=== PATIENT | male | born 1990 | race African-American/Black ===

== ENCOUNTER 2017-03-30 02:53 | Emergency (ER) | payer SELFPAY ==
[~2017-03-30 02:53] MED LIST: HYDR-3580 PO
[2017-03-30] MEDS ORDERED: SODIUM CHLORIDE 0.9% FLUSH 10 ML FLUSH IVF PRN (03:30)
[2017-03-30] MEDS ORDERED: AZITHROMYCIN PWD FOR SUSP 1 GM PACKET PO ONE (03:30)
[2017-03-30] MEDS ORDERED: LIDOCAINE HCL 1% PF 30 ML VIAL XX ONE (03:30)
[2017-03-30] MEDS ORDERED: metroNIDAZOLE 500 MG TAB PO ONE (03:30)
--- NOTE | 2017-03-30 03:32 | PD ---
HPI Chief Complaint: Complaint Time Seen by Provider: 03:30 Travel History International Travel<30 days: No Contact w/Intl Traveler<30days: No Traveled to known affect area: No History of Present Illness HPI Patient comes in complaining of dysuria ongoing for 1 week. Patient's pain is starting to go into his testicles. Denies anything making it better or worse. Patient reports he is sexually active with multiple partners and occasionally uses protection. Patient denies any fevers, nausea, vomiting, abdominal pain, chest pain, shortness breath, or previous episodes like this. PFSH Past Medical History Asthma: Yes Developmental Delay: No Diminished Hearing: No Immunizations Current: Yes Social History Alcohol Use: Yes (3 TIMES A MONTH) Tobacco Use: Yes (3 TIMES PER DAY) Substance Use: No Allergies-Medications (Allergen,Severity, Reaction): Coded Allergies: Tylenol (Verified Adverse Reaction, Unknown, 03/30/17) MOTHER TOLD HIM, BELIEVES IT MAKES ME VERY SLEEPY Reported Meds & Prescriptions Reported Meds & Active Scripts Active Review of Systems Except as stated in HPI: all other systems reviewed are Neg Physical Exam Narrative GENERAL: Well-developed, well nourished, in no acute distress, and non-ill appearing. SKIN: Focused skin assessment warm and dry. HEAD: Atraumatic. Normocephalic. EYES: Pupils equal and round. EOMI. No scleral icterus. No injection or drainage. ENT: No nasal bleeding or discharge. Mucous membranes pink and moist. NECK: Trachea midline. Supple. No nuclear rigidity. RESPIRATORY: No accessory muscle use. No respiratory distress. GASTROINTESTINAL: Abdomen soft, non-tender, nondistended. Hepatic and splenic margins not palpable. No pulsatile mass. MUSCULOSKELETAL: No obvious deformities. No clubbing. No cyanosis. No edema. Full range of motion. NEUROLOGICAL: Awake and alert. No obvious cranial nerve deficits. Motor grossly within normal limits. Normal speech. PSYCHIATRIC: Appropriate mood and affect; insight and judgment normal. Data Data Orders Urinalysis - C+S If Indicated (03/30/17 03:29) Gc And Chlamydia Pcr (03/30/17 03:29) Azithromycin Powd Pack (Zithromax Powd P (03/30/17 03:30) Metronidazole (Flagyl) (03/30/17 03:30) Sodium Chloride 0.9% Flush (Ns Flush) (03/30/17 03:30) Ceftriaxone Inj (Rocephin Inj) (03/30/17 03:30) Lidocaine Pf 1% Inj (Xylocaine-Mpf 1% In (03/30/17 03:30) MDM Medical Decision Making Medical Screen Exam Complete: Yes Emergency Medical Condition: No Differential Diagnosis UTI, STD, dysuria, other Narrative Course Patient in no obvious distress upon re-evaluation. Any questions/concerns in reference to patient diagnosis/condition discussed and clarified prior to patient's discharge. Reinforced sheer importance of close follow up with patient 's primary physician or primary care clinic and/or health Department. Instructed patient to return to ED immediately, if symptoms return/worsen. Pt showed understanding of above instructions. Further instructions and recommendations were detailed in discharge paperwork. Pt ambulated without difficulty out of ED at discharge. Diagnosis Primary Impression: Dysuria Additional Impression: Possible exposure to STD Referrals: [facility] Dept. Patient Instructions: Dysuria (ED), General Instructions, Sexually Transmitted Diseases (ED) Additional Instructions: Follow-up with your primary care physician and/or health Department for additional STD testing. Notify all sexual partners have them tested and treated. Do not have intercourse until all sexual partners tested and treated. Practice safe sex to prevent further STDs and/or unwanted pregnancies. If you would like a copy of your gonorrhea and chlamydia results bring a photo ID to medical records in 24-48 hours to get a copy. Return to the emergency department if symptoms get worse. Disposition: 01 DISCHARGE HOME Condition: Stable Harmeet Mena Mar 30, 2017 03:32
[2017-03-30 04:12] LABS: BLOOD, URINE LARGE (NEG); COMMENT (UR) CULTURE INDICATED; CULTURE IF INDICATED CULTURE INDICATED; GLUCOSE,URINE NEG (NEG); HYALINE CAST, URINE 1 /lpf (RARE); KETONE, URINE 10 mg/dL (NEG); MUCUS URINE FEW /lpf (OCC); NITRITE,URINE NEG (NEG); RENAL EPITHELIAL CELLS 1 /hpf; SQUAMOUS EPITHELIAL CELL URINE 1 /hpf (0-5); TRANSITIONAL EPI CELLS, URINE <1 /hpf; URINE COLOR YELLOW (YELLW/STRAW)
[2017-03-30 05:57] LABS: CHLAMYDIA PCR NOT DETECTED (NOT DETECT); NEISSERIA PCR DETECTED (NOT DETECT)
== END 2017-03-30 03:30 | disposition home or self-care (01) ==
LOC: NEPD 02:53
DX: R30.0 Dysuria (principal); J45.909 Unspecified asthma, uncomplicated; Z72.0 Tobacco use
CPT/HCPCS: 81001; 87086; 87491; 87591; 99283; J0696

== ENCOUNTER 2018-02-09 13:31 | Emergency (ER) | payer OTHER ==
[2018-02-09 13:37] VITALS: BP 120/80; PULSE 82; RESP 18; TEMP 98.5; O2SAT 98
[2018-02-09] MEDS ORDERED: MORPHINE SULFATE 4 MG/ML INJ IV PUSH ONE (14:15)
[2018-02-09] MEDS ORDERED: METOCLOPRAMIDE HCL 10 MG/2 ML VIAL IV PUSH ONE (14:15)
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
[2018-02-09] MEDS ORDERED: SODIUM CHLOR 0.9% 1000 ML INJ 1,000 ML IV ONE (14:45)
[2018-02-09 15:01] LABS: AUTOMATED NEUTROPHIL # 1.5 TH/MM3 (1.8-7.7); EOSINOPHIL # 0.1 TH/MM3 (0-0.4); EOSINOPHIL % 2.5 % (0.0-4.0); HEMATOCRIT 42.9 % (39.0-51.0); HEMOGLOBIN 14.6 GM/DL (13.0-17.0); LYMPH % 50.4 % (9.0-44.0); MEAN CELL VOLUME 79.1 FL (80.0-100.0); MEAN CORPUSCULAR HEMOGLOBIN 26.8 PG (27.0-34.0); MEAN CORPUSCULAR HGB CONC 33.9 % (32.0-36.0); MEAN PLATELET VOLUME 7.9 FL (7.0-11.0); MONO % 8.1 % (0.0-8.0); MONOCYTE # 0.3 TH/MM3 (0-0.9); PLATELET COUNT 267 TH/MM3 (150-450); RED BLOOD COUNT 5.42 MIL/MM3 (4.50-5.90); RED CELL DISTRIBUTION WIDTH 13.7 % (11.6-17.2)
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
[2018-02-09 15:19] LABS: ALBUMIN 3.9 GM/DL (3.4-5.0); ALT (GPT) 17 U/L (12-78); AST (GOT) 14 U/L (15-37); BICARBONATE 30.7 MEQ/L (21.0-32.0); BLOOD UREA NITROGEN 11 MG/DL (7-18); CALCIUM 9.2 MG/DL (8.5-10.1); CHLORIDE 104 MEQ/L (98-107); CREATININE 0.86 MG/DL (0.60-1.30); GLOMERULAR FILTRATION RATE 131 ML/MIN (>89); GLUCOSE,RANDOM 83 MG/DL (74-106); SODIUM (NA) 140 MEQ/L (136-145)
[2018-02-09 15:22] LABS: ALKALINE PHOSPHATASE 97 U/L (45-117); TOTAL BILIRUBIN ADULT 0.4 MG/DL (0.2-1.0); TOTAL PROTEIN 7.3 GM/DL (6.4-8.2)
[2018-02-09] MEDS ORDERED: IOHEXOL 350 MG/ML 10 ML VIAL (for RAD DIAG) IVCONTRAST ONE (15:51)
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
[2018-02-09] MEDS ORDERED: ROBA750T PO (17:18)
[2018-02-09] MEDS ORDERED: IBUP-232 PO (17:18)
== END 2018-02-09 17:34 | disposition home or self-care (01) ==
LOC: NEPD 13:31
DX: S16.1XXA Strain of muscle, fascia and tendon at neck level, initial encounter (principal); S09.90XA Unspecified injury of head, initial encounter; M54.5 Low back pain; V43.62XA Car passenger injured in collision with other type car in traffic accident, initial encounter
CPT/HCPCS: 70450; 71045; 72125; 72132; 74177; 80053; 85025; 96361; 96374; 96375; 99285; J2270; J2765; J7030; Q9967